=== PATIENT | male | born 1995 | race Caucasian/White ===

== ENCOUNTER 2020-02-02 15:55 | Emergency (ER) | payer BC, SELFPAY ==
[2020-02-02 15:59] VITALS: BP 114/79; PULSE 103; RESP 16; TEMP 37.4; O2SAT 97
--- NOTE | 2020-02-02 16:17 | ED.URI ---
HPI - URI/Sore Throat General Chief Complaint: Upper Respiratory Infection Stated Complaint: fever/cough/body aches Time Seen by Provider: 02/02/20 15:57 Source: patient Mode of arrival: ambulatory Limitations: no limitations History of Present Illness MD elicited complaint: fever, cough, rhinorrhea and nasal congestion Onset (ago): day(s) (2) Able to tolerate fluids by mouth: Yes Relieving factors: NSAID Treatments prior to arrival: none Related Data Allergies Allergy/AdvReac Type Severity Reaction Status Date / Time No Known Allergies Allergy Verified 02/02/20 16:05 Review of Systems Review of Systems: All systems reviewed & are unremarkable except as noted in HPI and below Constitutional: Constitutional: Reports chills, Denies fatigue, Reports fever(s) and Denies weakness ENT: Denies dysphagia, Denies dizziness, Denies epistaxis and Denies sore throat Cardiovascular: Cardiovascular: Denies chest pain, Denies rapid heart rate, Denies radiating jaw, neck or arm pain and Denies slow heart rate Respiratory: Respiratory: Denies chest congestion, Reports cough, Denies dyspnea and Denies wheezing Gastrointestinal: Gastrointestinal: Denies abdominal pain, Denies bloating, Denies constipation, Denies diarrhea and Denies vomiting Integumentary/Breasts: Skin/Breast: Denies rash Neurologic: Denies vertigo, Denies dizziness, Denies syncope, Denies headache(s) and Denies focal weakness PMFSH Social History Social History (Updated 02/02/20 @ 16:21 by Susi Mena APN) Smoking status: Never smoker Exam Const: General: healthy appearing, no acute distress, alert and ill appearing Nutritional Appearance: well nourished Orientation/consciousness: patient oriented x3 HENMT: Head: normal to inspection Ears: external ears normal and TM's normal bilaterally General nose exam: Normal nares present Face and sinus: sinuses nontender Mouth: Yes Normal oral and palatal mucosa present and Yes moist mucous membranes Neck: Neck: normal visual inspection Resp: Effort & Inspection: normal respiratory effort Auscultation: clear to auscultation bilaterally and no wheezes Cardio: Rate: regular rate Rhythm: regular rhythm Heart sounds: no murmurs Skin: General skin exam: normal color, no jaundice and no pallor Rashes: no rashes Neuro: General: patient oriented x3, moves all extremities and no meningeal signs Course Vital Signs Vital signs: Vital Signs Temperature 37.4 C 02/02/20 15:59 Pulse Rate 103 H 02/02/20 15:59 Respiratory Rate 16 02/02/20 15:59 Blood Pressure 114/79 02/02/20 15:59 Pulse Oximetry 97 02/02/20 15:59 Temperature 37.4 C 02/02/20 15:59 Pulse Rate 103 H 02/02/20 15:59 Respiratory Rate 16 02/02/20 15:59 Blood Pressure 114/79 02/02/20 15:59 Pulse Oximetry 97 02/02/20 15:59 MDM - URI/Sore Throat MDM Narrative Medical decision making narrative: (+) Influenza swab discussed with pt; work excuse provided for patient. Patient agrees to take medications as prescribed. Patient understands importance of monitoring his symptoms closely and agrees to proceed immediately to the emergency room if symptoms worsen Differential Diagnosis Differential diagnosis: Likely otitis media, sinusitis and bronchitis Lab Data Labs: Influenza A Screen Positive Reference Range: Negative Influenza B Screen Negative Reference Range: Negative Critical Care Time Critical Care Time Critical Care Time: No Discharge Plan Discharge Clinical Impression: Influenza Patient Disposition: Home, Self-Care Condition: Stable Instructions: Influenza (ED) Additional Instructions: Rest Increase fluids Take Tamiflu as prescribed Or Tessalon as needed for cough [id number] Motrin or Tylenol as needed Follow-up with primary care provider if symptoms not improve Proceed immediately to the emergency room if symptoms worsen Patient Language:
== END 2020-02-02 16:34 | disposition home or self-care (01) ==
PROVIDERS: Emergency Provider Nurse Practitioner Family
DX: J10.1 Influenza due to other identified influenza virus with other respiratory manifestations (principal)
CPT/HCPCS: 87804; 99203; G0463